=== PATIENT | male | born 1990 | race Caucasian/White ===

== ENCOUNTER 2018-06-02 00:03 | Inpatient (IN) | payer OTHER ==
[2018-06-02] MEDS ORDERED: ALBUTEROL/IPRATROPIUM (NEB) 3 ML AMP HHN (03:30)
[2018-06-02] MEDS ORDERED: ACETAMINOPHEN 650MG/20.3ML CUP GTB (03:30)
[2018-06-02] MEDS: SOD CHLORIDE 0.9% 1,000 ML IV ×2 (03:58→22:50)
[2018-06-02] MEDS: IBUPROFEN LIQUID (PED) 20 MG/ML CUP GTB ×3 (06:22→18:43)
[2018-06-02 06:27] LABS: ADD MAN DIFF? NO
[2018-06-02 06:30] LABS: WHITE BLOOD COUNT 8.5 10^3/ul (4.8-10.8)
[2018-06-02 06:30] LABS: BASOPHIL # 0.1 10^3/ul (0.0-0.1); BASOPHILS % 0.8 % (0.0-2.0); EOSINOPHILS # 0.2 10^3/ul (0.0-0.5); EOSINOPHILS % 1.9 % (0.0-7.0); HEMATOCRIT 36.2 % (42.0-52.0); HEMOGLOBIN 11.3 g/dl (14.0-18.0); LYMPHOCYTES # 2.9 10^3/ul (0.8-2.9); MEAN CORPUSCULAR HGB CONC 31.2 g/dl (32.0-37.0); MEAN PLATELET VOLUME 11.4 fl (7.4-10.4); MONOCYTE # 0.7 10^3/ul (0.3-0.9); MONOCYTES % 8.7 % (0.0-11.0); NEUTROPHIL # 4.6 10^3/ul (1.6-7.5); PLATELET COUNT 195 10^3/UL (140-415); RED BLOOD COUNT 3.77 10^6/ul (4.70-6.10); RED CELL DISTRIBUTION WIDTH 16.2 % (11.5-14.5)
[2018-06-02 06:55] LABS: ALANINE AMINOTRANSFERASE 32 IU/L (13-69); ALBUMIN/GLOBULIN RATIO 0.88; ALKALINE PHOSPHATASE 138 IU/L (42-121); ANION GAP 11 (5-13); ASPARTATE AMINO TRANSFERASE 21 IU/L (15-46); BLOOD UREA NITROGEN 13 mg/dl (7-20); CALCIUM 8.5 mg/dl (8.4-10.2); CARBON DIOXIDE 21 mmol/L (21-31); CHLORIDE 114 mmol/L (97-110); CREATININE 0.37 mg/dl (0.61-1.24); Estimated GFR > 60 mL/min (>60); GLUCOSE 74 mg/dl (70-220); POTASSIUM 3.6 mmol/L (3.5-5.1); SODIUM 146 mmol/L (135-144); TOTAL PROTEIN 6.4 g/dl (6.1-8.1)
[2018-06-02] MEDS: LAMOTRIGINE 25 MG TAB GTB ×2 (08:25→21:57)
[2018-06-02] MEDS: POLYETHYLENE GLYCOL 17 GM PACKET GTB (08:25)
[2018-06-02] MEDS: LAMOTRIGINE 100 MG TAB GTB ×2 (08:25→21:57)
[2018-06-02] MEDS: ASCORBIC ACID 500 MG TAB GTB (08:25)
[2018-06-02] MEDS: FERROUS SULFATE 60 MG/ML 5ML CUP GTB ×2 (08:25→21:58)
[2018-06-02] MEDS: LEVOFLOXACIN 500MG/D5W (PMX) 100 ML IVPB (08:25)
[2018-06-02] MEDS: TOPIRAMATE 25 MG TAB GTB ×2 (08:26→21:57)
[2018-06-02] MEDS: FAMOTIDINE 20 MG TAB GTB ×2 (08:26→21:58)
[2018-06-02] MEDS ORDERED: morphine LIQ (20 MG/ML PO SYG) GTB (09:00)
[2018-06-02] MEDS: PHENOBARBITAL 32.4 MG TAB GTB ×2 (10:36→21:58)
[2018-06-02] MEDS: ZINC SULFATE 220 MG CAP GTB (10:36)
[2018-06-02] MEDS ORDERED: ENOXAPARIN 40 MG/0.4 ML SYG SC (15:00)
[2018-06-02] MEDS: ENOXAPARIN 40 MG/0.4 ML SYG SC (17:10)
[2018-06-02] MEDS: ALBUTEROL/IPRATROPIUM (NEB) 3 ML AMP HHN ×2 (18:05→20:57)
[2018-06-02] MEDS ORDERED: LORAZEPAM 4 MG/ML VIAL IV (20:00)
[2018-06-02] MEDS: SOD CHLORIDE 0.9% 500 ML IV (21:31)
[2018-06-03] MEDS: IBUPROFEN LIQUID (PED) 20 MG/ML CUP GTB ×4 (00:06→17:48)
[2018-06-03] MEDS: LEVOFLOXACIN 500MG/D5W (PMX) 100 ML IVPB (08:51)
[2018-06-03] MEDS: TOPIRAMATE 25 MG TAB GTB ×2 (08:51→20:29)
[2018-06-03] MEDS: ZINC SULFATE 220 MG CAP GTB (08:52)
[2018-06-03] MEDS: PHENOBARBITAL 32.4 MG TAB GTB ×2 (08:52→20:30)
[2018-06-03] MEDS: ASCORBIC ACID 500 MG TAB GTB (08:52)
[2018-06-03] MEDS: LAMOTRIGINE 25 MG TAB GTB ×2 (08:52→20:29)
[2018-06-03] MEDS: FERROUS SULFATE 60 MG/ML 5ML CUP GTB ×2 (08:52→20:29)
[2018-06-03] MEDS: LAMOTRIGINE 100 MG TAB GTB ×2 (08:52→20:29)
[2018-06-03] MEDS: FAMOTIDINE 20 MG TAB GTB ×2 (08:52→20:29)
[2018-06-03] MEDS: ENOXAPARIN 40 MG/0.4 ML SYG SC (08:53)
[2018-06-03] MEDS: POLYETHYLENE GLYCOL 17 GM PACKET GTB (09:00)
[2018-06-03] MEDS: ALBUTEROL/IPRATROPIUM (NEB) 3 ML AMP HHN ×4 (09:32→20:04)
[2018-06-03] MEDS: NACL 3% FOR INHALATION 15 ML NEBU NEB (14:13)
[2018-06-03] MEDS: BALSAM PERU/CASTOR OIL 60 GM TUBE TOP (20:31)
[2018-06-03] MEDS: COLLAGENASE 5 GM (UD JAR) TOP (20:32)
[2018-06-04] MEDS: IBUPROFEN LIQUID (PED) 20 MG/ML CUP GTB ×4 (00:23→18:23)
[2018-06-04 05:16] LABS: PHENOBARBITAL 45.5 mg/L (15.0-40.0)
[2018-06-04 06:26] LABS: ADD MAN DIFF? NO
[2018-06-04 06:30] LABS: WHITE BLOOD COUNT 6.6 10^3/ul (4.8-10.8)
[2018-06-04 06:30] LABS: BASOPHIL # 0.1 10^3/ul (0.0-0.1); BASOPHILS % 0.8 % (0.0-2.0); EOSINOPHILS # 0.2 10^3/ul (0.0-0.5); EOSINOPHILS % 2.3 % (0.0-7.0); HEMATOCRIT 39.3 % (42.0-52.0); HEMOGLOBIN 12.3 g/dl (14.0-18.0); LYMPHOCYTES % 45.8 % (15.0-51.0); MEAN CORPUSCULAR HEMOGLOBIN 29.5 pg (29.0-33.0); MEAN CORPUSCULAR HGB CONC 31.3 g/dl (32.0-37.0); MEAN CORPUSCULAR VOLUME 94.2 fl (82.0-101.0); MEAN PLATELET VOLUME 12.4 fl (7.4-10.4); MONOCYTE # 0.6 10^3/ul (0.3-0.9); MONOCYTES % 9.5 % (0.0-11.0); NEUTROPHIL # 2.7 10^3/ul (1.6-7.5); NEUTROPHILS % 40.2 % (39.0-77.0); PLATELET COUNT 162 10^3/UL (140-415); RED BLOOD COUNT 4.17 10^6/ul (4.70-6.10); RED CELL DISTRIBUTION WIDTH 15.9 % (11.5-14.5)
[2018-06-04 07:20] LABS: ADD UMIC NO; UR AMORPHOUS CRYSTAL FEW /HPF (NONE SEEN); UR ASCORBIC ACID 40 mg/dL (NEGATIVE); UR BACTERIA FEW /HPF (NONE SEEN); UR BILIRUBIN (Dip) NEGATIVE (NEGATIVE); UR BLOOD (Dip) NEGATIVE (NEGATIVE); UR CLARITY SLIGHTLY CLOUDY (CLEAR); UR COLOR YELLOW (YELLOW); UR GLUCOSE (Dip) NEGATIVE (NEGATIVE); UR KETONES (Dip) NEGATIVE (NEGATIVE); UR LEUKOCYTE ESTERASE (Dip) NEGATIVE Leu/ul (NEGATIVE); UR MUCUS FEW /HPF (NONE SEEN); UR NITRITE (Dip) NEGATIVE (NEGATIVE); UR RBC 0 /HPF (0-5); UR TOTAL PROTEIN (Dip) NEGATIVE (NEGATIVE); UR UROBILINOGEN (Dip) NEGATIVE (NEGATIVE); UR WBC 4 /HPF (0-5)
[2018-06-04] MEDS: ALBUTEROL/IPRATROPIUM (NEB) 3 ML AMP HHN ×4 (09:33→20:59)
[2018-06-04] MEDS: TOPIRAMATE 25 MG TAB GTB ×2 (10:02→20:09)
[2018-06-04] MEDS: COLLAGENASE 5 GM (UD JAR) TOP ×2 (10:02→20:08)
[2018-06-04] MEDS: LAMOTRIGINE 100 MG TAB GTB ×2 (10:02→20:09)
[2018-06-04] MEDS: LAMOTRIGINE 25 MG TAB GTB ×2 (10:02→20:09)
[2018-06-04] MEDS: FERROUS SULFATE 60 MG/ML 5ML CUP GTB ×2 (10:02→20:08)
[2018-06-04] MEDS: ASCORBIC ACID 500 MG TAB GTB (10:03)
[2018-06-04] MEDS: PHENOBARBITAL 32.4 MG TAB GTB ×2 (10:03→21:49)
[2018-06-04] MEDS: FAMOTIDINE 20 MG TAB GTB ×2 (10:03→20:09)
[2018-06-04] MEDS: ZINC SULFATE 220 MG CAP GTB (10:03)
[2018-06-04] MEDS: BALSAM PERU/CASTOR OIL 60 GM TUBE TOP ×2 (10:03→20:10)
[2018-06-04] MEDS: POLYETHYLENE GLYCOL 17 GM PACKET GTB (10:03)
[2018-06-04] MEDS: LEVOFLOXACIN 500MG/D5W (PMX) 100 ML IVPB (10:04)
[2018-06-04] MEDS: ENOXAPARIN 40 MG/0.4 ML SYG SC (10:06)
[2018-06-04 10:08] LABS: MAGNESIUM 1.9 mg/dl (1.7-2.5)
[2018-06-04 13:13] LABS: ANION GAP 10 (5-13); BLOOD UREA NITROGEN 8 mg/dl (7-20); CALCIUM 8.8 mg/dl (8.4-10.2); CARBON DIOXIDE 23 mmol/L (21-31); CHLORIDE 106 mmol/L (97-110); CREATININE 0.32 mg/dl (0.61-1.24); Estimated GFR > 60 mL/min (>60); GLUCOSE 100 mg/dl (70-220); POTASSIUM 3.9 mmol/L (3.5-5.1); SODIUM 139 mmol/L (135-144)
[2018-06-04] MEDS: CEFEPIME 1GM/50 ML (PMX) 50 ML IVPB (20:10)
[2018-06-05] MEDS: IBUPROFEN LIQUID (PED) 20 MG/ML CUP GTB ×4 (02:01→18:26)
[2018-06-05 06:35] LABS: MAGNESIUM 2.1 mg/dl (1.7-2.5)
[2018-06-05 06:35] LABS: PHOSPHORUS 4.2 mg/dl (2.5-4.9)
[2018-06-05 06:36] LABS: ADD MAN DIFF? NO
[2018-06-05 06:43] LABS: ANION GAP 5 (5-13); BLOOD UREA NITROGEN 9 mg/dl (7-20); CALCIUM 8.9 mg/dl (8.4-10.2); CARBON DIOXIDE 24 mmol/L (21-31); CHLORIDE 110 mmol/L (97-110); CREATININE 0.38 mg/dl (0.61-1.24); Estimated GFR > 60 mL/min (>60); GLUCOSE 81 mg/dl (70-220); POTASSIUM 4.2 mmol/L (3.5-5.1); SODIUM 139 mmol/L (135-144)
[2018-06-05 06:49] LABS: BASOPHILS % 0.6 % (0.0-2.0); EOSINOPHILS # 0.2 10^3/ul (0.0-0.5); EOSINOPHILS % 3.2 % (0.0-7.0); HEMOGLOBIN 12.2 g/dl (14.0-18.0); LYMPHOCYTES # 2.6 10^3/ul (0.8-2.9); LYMPHOCYTES % 39.9 % (15.0-51.0); MEAN CORPUSCULAR HEMOGLOBIN 29.4 pg (29.0-33.0); MEAN CORPUSCULAR HGB CONC 32.1 g/dl (32.0-37.0); MEAN CORPUSCULAR VOLUME 91.6 fl (82.0-101.0); MEAN PLATELET VOLUME 11.3 fl (7.4-10.4); MONOCYTE # 0.6 10^3/ul (0.3-0.9); MONOCYTES % 8.8 % (0.0-11.0); NEUTROPHIL # 3.1 10^3/ul (1.6-7.5); NEUTROPHILS % 46.6 % (39.0-77.0); PLATELET COUNT 255 10^3/UL (140-415); RED BLOOD COUNT 4.15 10^6/ul (4.70-6.10); RED CELL DISTRIBUTION WIDTH 15.9 % (11.5-14.5)
[2018-06-05 06:49] LABS: WHITE BLOOD COUNT 6.6 10^3/ul (4.8-10.8)
[2018-06-05] MEDS: ZINC SULFATE 220 MG CAP GTB (08:31)
[2018-06-05] MEDS: CEFEPIME 1GM/50 ML (PMX) 50 ML IVPB ×2 (08:31→20:42)
[2018-06-05] MEDS: FERROUS SULFATE 60 MG/ML 5ML CUP GTB ×2 (08:31→20:43)
[2018-06-05] MEDS: LAMOTRIGINE 25 MG TAB GTB ×2 (08:31→20:44)
[2018-06-05] MEDS: FAMOTIDINE 20 MG TAB GTB ×2 (08:32→20:44)
[2018-06-05] MEDS: TOPIRAMATE 25 MG TAB GTB ×2 (08:32→20:44)
[2018-06-05] MEDS: POLYETHYLENE GLYCOL 17 GM PACKET GTB (08:32)
[2018-06-05] MEDS: LAMOTRIGINE 100 MG TAB GTB ×2 (08:32→20:44)
[2018-06-05] MEDS: ASCORBIC ACID 500 MG TAB GTB (08:32)
[2018-06-05] MEDS: COLLAGENASE 5 GM (UD JAR) TOP ×2 (08:33→20:45)
[2018-06-05] MEDS: BALSAM PERU/CASTOR OIL 60 GM TUBE TOP ×2 (08:34→20:45)
[2018-06-05] MEDS: ENOXAPARIN 40 MG/0.4 ML SYG SC (08:34)
[2018-06-05] MEDS: ALBUTEROL/IPRATROPIUM (NEB) 3 ML AMP HHN ×4 (09:00→21:30)
[2018-06-05] MEDS: PHENOBARBITAL 32.4 MG TAB GTB ×2 (10:02→20:43)
[2018-06-05] MEDS ORDERED: LORAZEPAM 2 MG INJ IV (11:00)
[2018-06-05] MEDS: ONDANSETRON (ODT) 4 MG TAB ODT (18:26)
[2018-06-06] MEDS: IBUPROFEN LIQUID (PED) 20 MG/ML CUP GTB ×4 (00:12→18:00)
[2018-06-06 02:33] LABS: PHENOBARBITAL 38.5 mg/L (15.0-40.0)
[2018-06-06] MEDS: ALBUTEROL/IPRATROPIUM (NEB) 3 ML AMP HHN ×4 (08:10→21:37)
[2018-06-06] MEDS: CEFEPIME 1GM/50 ML (PMX) 50 ML IVPB ×2 (09:28→21:04)
[2018-06-06] MEDS: POLYETHYLENE GLYCOL 17 GM PACKET GTB (09:29)
[2018-06-06] MEDS: ZINC SULFATE 220 MG CAP GTB (09:29)
[2018-06-06] MEDS: LAMOTRIGINE 100 MG TAB GTB ×2 (09:29→21:06)
[2018-06-06] MEDS: LAMOTRIGINE 25 MG TAB GTB ×2 (09:29→21:05)
[2018-06-06] MEDS: ASCORBIC ACID 500 MG TAB GTB (09:30)
[2018-06-06] MEDS: PHENOBARBITAL 32.4 MG TAB GTB ×2 (09:30→21:05)
[2018-06-06] MEDS: FAMOTIDINE 20 MG TAB GTB ×2 (09:30→21:06)
[2018-06-06] MEDS: TOPIRAMATE 25 MG TAB GTB ×2 (09:31→21:06)
[2018-06-06] MEDS: FERROUS SULFATE 60 MG/ML 5ML CUP GTB ×2 (09:31→21:05)
[2018-06-06] MEDS: BALSAM PERU/CASTOR OIL 60 GM TUBE TOP ×2 (09:31→21:07)
[2018-06-06] MEDS: COLLAGENASE 5 GM (UD JAR) TOP ×2 (09:31→21:06)
[2018-06-06] MEDS: ENOXAPARIN 40 MG/0.4 ML SYG SC (09:34)
[2018-06-07] MEDS: IBUPROFEN LIQUID (PED) 20 MG/ML CUP GTB ×5 (00:19→23:49)
[2018-06-07] MEDS: ALBUTEROL/IPRATROPIUM (NEB) 3 ML AMP HHN ×4 (09:19→21:32)
[2018-06-07] MEDS: POLYETHYLENE GLYCOL 17 GM PACKET GTB (09:46)
[2018-06-07] MEDS: COLLAGENASE 5 GM (UD JAR) TOP ×2 (09:46→21:08)
[2018-06-07] MEDS: FERROUS SULFATE 60 MG/ML 5ML CUP GTB ×2 (09:46→20:53)
[2018-06-07] MEDS: LAMOTRIGINE 25 MG TAB GTB ×2 (09:47→20:54)
[2018-06-07] MEDS: LAMOTRIGINE 100 MG TAB GTB ×2 (09:47→20:54)
[2018-06-07] MEDS: PHENOBARBITAL 32.4 MG TAB GTB ×2 (09:48→20:55)
[2018-06-07] MEDS: TOPIRAMATE 25 MG TAB GTB ×2 (09:48→20:54)
[2018-06-07] MEDS: FAMOTIDINE 20 MG TAB GTB ×2 (09:49→20:55)
[2018-06-07] MEDS: ZINC SULFATE 220 MG CAP GTB (09:49)
[2018-06-07] MEDS: ASCORBIC ACID 500 MG TAB GTB (09:49)
[2018-06-07] MEDS: CEFEPIME 1GM/50 ML (PMX) 50 ML IVPB ×2 (09:50→20:54)
[2018-06-07] MEDS: BALSAM PERU/CASTOR OIL 60 GM TUBE TOP ×2 (09:50→21:08)
[2018-06-07] MEDS: ENOXAPARIN 40 MG/0.4 ML SYG SC (09:52)
[2018-06-08] MEDS: IBUPROFEN LIQUID (PED) 20 MG/ML CUP GTB ×3 (06:03→18:27)
[2018-06-08] MEDS: POLYETHYLENE GLYCOL 17 GM PACKET GTB (08:38)
[2018-06-08] MEDS: BALSAM PERU/CASTOR OIL 60 GM TUBE TOP ×2 (08:38→20:42)
[2018-06-08] MEDS: COLLAGENASE 5 GM (UD JAR) TOP ×2 (08:38→20:40)
[2018-06-08] MEDS: ASCORBIC ACID 500 MG TAB GTB (08:46)
[2018-06-08] MEDS: ZINC SULFATE 220 MG CAP GTB (08:46)
[2018-06-08] MEDS: LAMOTRIGINE 100 MG TAB GTB ×2 (08:46→20:40)
[2018-06-08] MEDS: CEFEPIME 1GM/50 ML (PMX) 50 ML IVPB ×2 (08:46→20:39)
[2018-06-08] MEDS: LAMOTRIGINE 25 MG TAB GTB ×2 (08:46→20:40)
[2018-06-08] MEDS: FAMOTIDINE 20 MG TAB GTB ×2 (08:47→20:40)
[2018-06-08] MEDS: TOPIRAMATE 25 MG TAB GTB ×2 (08:47→20:42)
[2018-06-08] MEDS: FERROUS SULFATE 60 MG/ML 5ML CUP GTB ×2 (08:47→20:40)
[2018-06-08] MEDS: ENOXAPARIN 40 MG/0.4 ML SYG SC (08:50)
[2018-06-08] MEDS: PHENOBARBITAL 32.4 MG TAB GTB ×2 (09:06→20:41)
[2018-06-08] MEDS: ALBUTEROL/IPRATROPIUM (NEB) 3 ML AMP HHN ×4 (10:16→21:04)
[2018-06-09] MEDS: IBUPROFEN LIQUID (PED) 20 MG/ML CUP GTB ×3 (00:21→13:31)
[2018-06-09] MEDS: ALBUTEROL/IPRATROPIUM (NEB) 3 ML AMP HHN ×2 (08:48→14:04)
[2018-06-09] MEDS: CEFEPIME 1GM/50 ML (PMX) 50 ML IVPB (09:02)
[2018-06-09] MEDS: FAMOTIDINE 20 MG TAB GTB (09:02)
[2018-06-09] MEDS: FERROUS SULFATE 60 MG/ML 5ML CUP GTB (09:02)
[2018-06-09] MEDS: POLYETHYLENE GLYCOL 17 GM PACKET GTB (09:02)
[2018-06-09] MEDS: ZINC SULFATE 220 MG CAP GTB (09:03)
[2018-06-09] MEDS: PHENOBARBITAL 32.4 MG TAB GTB (09:03)
[2018-06-09] MEDS: TOPIRAMATE 25 MG TAB GTB (09:03)
[2018-06-09] MEDS: ASCORBIC ACID 500 MG TAB GTB (09:03)
[2018-06-09] MEDS: LAMOTRIGINE 100 MG TAB GTB (09:03)
[2018-06-09] MEDS: LAMOTRIGINE 25 MG TAB GTB (09:04)
[2018-06-09] MEDS: COLLAGENASE 5 GM (UD JAR) TOP (09:04)
[2018-06-09] MEDS: BALSAM PERU/CASTOR OIL 60 GM TUBE TOP (09:05)
[2018-06-09] MEDS: ENOXAPARIN 40 MG/0.4 ML SYG SC (09:14)
[2018-06-09 09:24] LABS: ADD MAN DIFF? NO
[2018-06-09 09:26] LABS: WHITE BLOOD COUNT 5.4 10^3/ul (4.8-10.8)
[2018-06-09 09:26] LABS: BASOPHIL # 0.1 10^3/ul (0.0-0.1); BASOPHILS % 1.3 % (0.0-2.0); EOSINOPHILS # 0.2 10^3/ul (0.0-0.5); EOSINOPHILS % 3.1 % (0.0-7.0); LYMPHOCYTES # 2.3 10^3/ul (0.8-2.9); LYMPHOCYTES % 42.5 % (15.0-51.0); MEAN CORPUSCULAR HEMOGLOBIN 29.2 pg (29.0-33.0); MEAN CORPUSCULAR HGB CONC 31.6 g/dl (32.0-37.0); MEAN CORPUSCULAR VOLUME 92.5 fl (82.0-101.0); MEAN PLATELET VOLUME 10.5 fl (7.4-10.4); MONOCYTE # 0.5 10^3/ul (0.3-0.9); MONOCYTES % 9.6 % (0.0-11.0); NEUTROPHIL # 2.3 10^3/ul (1.6-7.5); NEUTROPHILS % 43.1 % (39.0-77.0); PLATELET COUNT 318 10^3/UL (140-415); RED BLOOD COUNT 4.11 10^6/ul (4.70-6.10)
[2018-06-09 09:44] LABS: ANION GAP 10 (5-13); BLOOD UREA NITROGEN 14 mg/dl (7-20); CALCIUM 9.4 mg/dl (8.4-10.2); CARBON DIOXIDE 29 mmol/L (21-31); CHLORIDE 102 mmol/L (97-110); CREATININE 0.42 mg/dl (0.61-1.24); Estimated GFR > 60 mL/min (>60); GLUCOSE 88 mg/dl (70-220); POTASSIUM 4.5 mmol/L (3.5-5.1); SODIUM 141 mmol/L (135-144)
[2018-06-09] MEDS: INFLUENZA VIRUS VACCINE 0.5 ML (DISPENSING) IM* (13:31)
== END 2018-06-09 16:35 | disposition home health service (06) | DRG 871 ==
LOC: 2NE 00:03
DX: A41.9 Sepsis, unspecified organism (principal); J18.9 Pneumonia, unspecified organism; R53.2 Functional quadriplegia; L89.153 Pressure ulcer of sacral region, stage 3; G80.0 Spastic quadriplegic cerebral palsy; E44.0 Moderate protein-calorie malnutrition; E87.0 Hyperosmolality and hypernatremia; F79 Unspecified intellectual disabilities; G40.909 Epilepsy, unspecified, not intractable, without status epilepticus; R13.10 Dysphagia, unspecified; Z93.1 Gastrostomy status; Z74.01 Bed confinement status
CPT/HCPCS: 71045; 80048; 80053; 80184; 81001; 81003; 83735; 84100; 85025; 87070; 87400; 89220; 90686; 94640; 94664